=== PATIENT | male | born 1965 | race Caucasian/White ===

== ENCOUNTER 2019-05-06 00:33 | Day surgery (SDC) | payer OTHER, SELFPAY ==
[2019-05-01 14:11] VITALS: BMI 31.1
[2019-05-06] MEDS: LACTATED RINGERS 1,000 ML 150 ML IV CONT (06:50)
[2019-05-06 06:53] VITALS: BP 126/83; PULSE 66; RESP 18; TEMP 36.5; O2SAT 97; BMI 31.4
[2019-05-06 06:54] LABS: Glucose Point of Care 156 (65-105)
--- NOTE | 2019-05-06 07:07 | PM.HPGS ---
History of Present Illness History of Present Illness Consent: Risks, benefits, and alternatives have been discussed and questions answered. Patient agrees to proceed with procedure. Chief complaint: neoplasm screening Narrative: Salvador Lucas is a 54 year old W male Referred for screening colonoscopy secondary history of colonic polyps. Patient had several polyps removed 3 years ago mixture of adenomatous and hyperplastic polyps. Patient is asymptomatic. No family history of colon polyps or colon cancer. [facility] Past Medical History Medical History (Updated 05/06/19 @ 07:09 by Jarrod Jose MD) Diabetes mellitus Dyslipidemia Hypertension Sleep apnea Surgical History Surgical History (Updated 05/06/19 @ 07:10 by Jarrod Jose MD) Status post cholecystectomy Status post vasectomy Family History Family History Other Family history of gastrointestinal disorder Hypertension Meds Home Medications and Allergies Home Medications Medication Instructions Recorded Confirmed Type aspirin 81 mg PO DAILY 05/01/19 05/06/19 History atorvastatin 20 mg PO DAILY 05/01/19 05/06/19 History glipizide 5 mg PO DAILY 05/01/19 05/06/19 History lisinopril 20 mg PO DAILY 05/01/19 05/06/19 History sitagliptin-metformin [Janumet] 1,000 tablet PO BID 05/01/19 05/06/19 History Allergies Allergy/AdvReac Type Severity Reaction Status Date / Time amoxicillin Allergy Intermediate HIVES Verified 05/06/19 06:55 Vital Signs Vital Signs - 24 hr 05/06/19 06:53 Temperature 36.5 C Pulse Rate 66 Respiratory Rate 18 Blood Pressure 126/83 Pulse Oximetry 97 Exam Const: Orientation/consciousness: patient oriented x3 Resp: Auscultation: clear to auscultation bilaterally Cardio: Rate: regular rate Rhythm: regular rhythm Heart sounds: no murmurs GI: GI Palp: Yes Soft to palpation, No Tenderness to palpation present (GI), Yes No hepatosplenomegaly present and No Palpable mass present Auscultation: normal bowel sounds Neuro: General: patient oriented x3 and no focal motor deficits Extrem: General: no pedal edema Assessment and Plan Additional Plan screening colonoscopy secondary history of colonic polyps
--- NOTE | 2019-05-06 07:13 | WPDANESEPPF ---
Anes - Initial Pre Proc Eval Procedure: Operation Date: 05/06/19 07:30 Proposed Procedures p Screening Colonoscopy - Jarrod Jose MD Date/Time: 05/06/19 07:13 Surgeon: Jarrod Jose MD Pre Op Diagnosis: neoplasm screening Patient Data Age: 54 Gender: M Height: 6 ft 2 in Weight: 111.2 kg Last Vital Signs Temp 97.7 F 05/06/19 06:53 Pulse 66 05/06/19 06:53 Resp 18 05/06/19 06:53 BP 126/83 05/06/19 06:53 Pulse Ox 97 05/06/19 06:53 Allergies Allergy/AdvReac Type Severity Reaction Status Date / Time amoxicillin Allergy Intermediate HIVES Verified 05/06/19 06:55 Home Medications Medication Instructions Recorded Confirmed Type aspirin 81 mg PO DAILY 05/01/19 05/06/19 History atorvastatin 20 mg PO DAILY 05/01/19 05/06/19 History glipizide 5 mg PO DAILY 05/01/19 05/06/19 History lisinopril 20 mg PO DAILY 05/01/19 05/06/19 History sitagliptin-metformin [Janumet] 1,000 tablet PO BID 05/01/19 05/06/19 History Laboratory Tests 05/06/19 06:49 POC Capillary Glucose 156 mg/dl H mg/dl (65-105) Patient hx anesthesia problems: none Family hx anesthesia problems: none PMFSH Past Medical History Medical History (Updated 05/06/19 @ 07:09 by Jarrod Jose MD) Diabetes mellitus Dyslipidemia Hypertension Sleep apnea Surgical History Surgical History (Updated 05/06/19 @ 07:10 by Jarrod Jose MD) Status post cholecystectomy Status post vasectomy Family History Family History Other Family history of gastrointestinal disorder Hypertension Anes - Eval Final PreProcedure Day of Procedure 05/06/19 07:13 Patient weight: obese Heart: regular rate and rhythm Lungs: clear to auscultation Airway: Mallampati scale class III Neurological: alert and oriented Last oral intake: >/= 8 hours ASA classification: III Emergent: no Anesthetic plan: proceed Anesthesia type and monitoring: general GIVS and standard monitoring Informed Consent: The patient's anesthetic plan and its attendant risks and benefits were discussed with the patient/family/POA. Questions were solicited and answers provided to the satisfaction of the patient/family/POA.
[2019-05-06 07:55] VITALS: BP 103/62; PULSE 82; RESP 19; O2SAT 99
[2019-05-06 08:05] VITALS: BP 112/74; PULSE 65; RESP 18; O2SAT 99
[2019-05-06 08:15] VITALS: BP 115/83; PULSE 63; RESP 20; O2SAT 98
== END 2019-05-06 08:28 | disposition home or self-care (01) ==
PROVIDERS: Visit Provider Internal Medicine Gastroenterology
PROC: 0DJD8ZZ Inspection of Lower Intestinal Tract, Via Natural or Artificial Opening Endoscopic (ICD-10-PCS; CPT 45378; principal; 2019-05-06 07:30)
DX: Z12.11 Encounter for screening for malignant neoplasm of colon (principal); K64.4 Residual hemorrhoidal skin tags; Z86.010 Personal history of colon polyps; I10 Essential (primary) hypertension; E11.9 Type 2 diabetes mellitus without complications; E78.5 Hyperlipidemia, unspecified; G47.30 Sleep apnea, unspecified; Z79.82 Long term (current) use of aspirin; Z79.84 Long term (current) use of oral hypoglycemic drugs; E66.9 Obesity, unspecified; Z68.31 Body mass index [BMI] 31.0-31.9, adult
CPT/HCPCS: 45378; J2704; J7120

== ENCOUNTER 2020-01-12 17:37 | Emergency (ER) | payer OTHER, SELFPAY ==
--- NOTE | ~2020-01-12 | CT_ITS ---
EXAMINATION: CTA chest PE protocol EXAM DATE: 01/12/2020 22:39 INDICATION: Chest pain, shortness of breath, elevated d dimer. TECHNIQUE: Spiral CTA of the chest (pulmonary arteries) was performed with 100 cc Omnipaque 350 intr avenous contrast injection. Images were acquired during the pulmonary arterial phase. Coronal maxi mum intensity projection 3D-reconstructions were created by the technologist on dedicated workstation . Axial, coronal and sagittal reformatted images were reviewed. The dose-length product (DLP) for t his examination was 716.46 mGy-cm. The exposure was tailored according to patient size (auto mA exp osure control), and iterative reconstruction (ASIR) was used as additional dose reduction technique. There is no prior study for comparison. FINDINGS: Pulmonary arteries are well opacified and without intraluminal filling defects. No thora cic aortic dissection. Right lower lobe subsegmental atelectasis. The lungs are otherwise clear. T race pericardial effusion Tracheobronchial tree is patent. There is no mediastinal, hilar or axill tiffanie lymphadenopathy. There is no pneumothorax. Heart normal in size. There is minimal coronary arterial calcification, arterial sclerosis. There are cholecystectomy clips. There is thoracic spon dylosis without osteoblastic or osteolytic lesions identified. IMPRESSION: 1. No pulmonary emboli or acute findings. Reviewed, dictated and finalized at location A. ROOM SUPERVISOR
--- NOTE | ~2020-01-12 | XR_ITS ---
EXAMINATION: XR chest 2V EXAM DATE: 01/12/2020 20:41 INDICATION: Generalized chest pain worsening. Headaches. TECHNIQUE: Frontal and lateral projections of the chest obtained and reviewed. There is no prior kassandra dy for comparison. FINDINGS: Rounded density projecting over mid thoracic spinal lateral projection is chronic, correla ting with a prior abdomen CT from 2006. Linear left basilar atelectasis. The lungs are otherwise scotty r. There are no pleural effusions. The cardiomediastinal silhouette is within normal limits. There is no pneumothorax suspected. The bones and soft tissues are unremarkable. There are cholecystecto my clips. IMPRESSION: Subsegmental left basilar atelectasis. Reviewed, dictated and finalized at location A. SOFTWARE TESTER
--- NOTE | 2020-01-12 18:03 | ECG_ITS ---
Measurements Intervals [place] Rate: 81 P: 19 NV: 164 QRS: 23 QRSD: 102 T: 29 QT: 350 QTc: 408 Interpretive Statements SINUS RHYTHM BASELINE WANDER- II, III, AVL, AVF, V4-V6 NORMAL ECG Electronically Signed On 01-13-2020 14:49:01 PINMAKER by Fausto Luna D.O.
[2020-01-12 18:04] VITALS: BP 124/89; PULSE 78; RESP 18; TEMP 36.8; O2SAT 100
[2020-01-12 18:18] LABS: Basophils Absolute Auto 0.1 K/mm3 (0.0-0.1); Basophils Percent Auto 0.9 % (0.2-1.2); Eosinophils Absolute Auto 0.4 K/mm3 (0-0.3); Eosinophils Percent Auto 4.1 % (0-4.4); Hemoglobin 12.5 g/dL (14.0-18.0); Immature Granulocyte Absolute 0.05 K/mm3 (0.00-0.031); Immature Granulocyte Percent A 0.5 % (0-0.5); Lymphocytes Absolute Auto 3.26 K/mm3 (0.9-3.2); Lymphocytes Percent Auto 31.3 % (18.3-44.2); Mean Corpuscular HGB Conc 32.1 g/dl (32-36); Mean Corpuscular Hemoglobin 27.5 pg (26-34); Mean Corpuscular Volume 85.9 fl (80-100); Mean Platelet Volume 11.1 fl (7.4-10.4); Monocytes Absolute Auto 0.7 K/mm3 (0.1-0.6); Monocytes Percent Auto 7.1 % (2.6-8.5); Neutrophils Absolute Auto 5.9 K/mm3 (1.3-6.7); Neutrophils Percent Auto 56.1 % (45.5-73.1); Platelet Count Result 338 k/mm3 (150-375); Red Blood Count 4.54 M/mm3 (4.6-6.20); Red Cell Distribution Width 13.2 % (11.5-14.5); White Blood Count 10.4 K/mm3 (4.5-10.0)
[2020-01-12 18:27] LABS: INR 0.9; Prothrombin Time 13.2 Seconds (11.1-14.7)
[2020-01-12 18:28] LABS: Partial Thromboplastin Time 24.9 SECONDS (22.3-36.8)
[2020-01-12 18:44] LABS: Anion Gap 13 mmol/L (8-16); Blood Urea Nitrogen 13 mg/dL (9-20); Calcium 9.7 mg/dL (8.4-10.2); Carbon Dioxide 23 mmol/L (22-30); Chloride 101 mmol/L (98-107); Estimated CRCL calculation 141 ml/min; Estimated Glomerular Filt Rate > 60; Glucose 197 mg/dL (75-110); Potassium 4.1 mmol/L (3.4-5.0); Sodium 137 mmol/L (137-145)
[2020-01-12 18:56] LABS: Troponin I < 0.012 ng/mL (0.000-0.034)
--- NOTE | 2020-01-12 20:33 | ED.CHESTPAIN ---
HPI - Chest Pain General Chief Complaint: Chest Pain Stated Complaint: chest pain Time Seen by Provider: 01/12/20 20:21 Source: patient Mode of arrival: ambulatory Limitations: no limitations History of Present Illness HPI narrative: This patient is a 54 year old male with history of hypertension and diabetes mellitus who presents for evaluation of midsternal chest pain. He developed pain 24 hours ago. He states his pain has been constant but it is gradually worsening. He feels this pain more when he turns his neck and takes a breath. He also reports some shortness of breath when walking up stairs. He denies fever, chills, nausea, vomiting , diarrhea, cough. His is under investigation for covid. He denies history of cardiac disease and PE. He has taken tylenol for his pain and he rates his pain 08/06. Related Data Home Medications Medication Instructions Recorded Confirmed Janumet 1,000 tablet PO BID 05/01/19 05/06/19 aspirin 81 mg PO DAILY 05/01/19 05/06/19 atorvastatin 20 mg PO DAILY 05/01/19 05/06/19 glipizide 5 mg PO DAILY 05/01/19 05/06/19 lisinopril 20 mg PO DAILY 05/01/19 05/06/19 Allergies Allergy/AdvReac Type Severity Reaction Status Date / Time amoxicillin Allergy Intermediate HIVES Verified 01/12/20 21:25 Review of Systems Review of Systems: All systems reviewed & are unremarkable except as noted in HPI and below Constitutional: Constitutional: Denies chills, Reports fatigue and Denies fever(s) Cardiovascular: Cardiovascular: Reports chest pain and Denies radiating jaw, neck or arm pain Respiratory: Respiratory: Denies cough, Reports dyspnea and Denies wheezing Gastrointestinal: Gastrointestinal: Denies abdominal pain, Denies nausea and Denies vomiting PMF Past Medical History Medical History (Updated 01/13/20 @ 00:00 by Background [place]) Diabetes mellitus Dyslipidemia Hypertension Sleep apnea Surgical History Surgical History (Updated 05/06/19 @ 07:10 by Jarrod Jose MD) Status post cholecystectomy Status post vasectomy Family History Family History Other Family history of gastrointestinal disorder Hypertension Exam Const: General: healthy appearing and alert Orientation/consciousness: patient oriented x3 HENMT: Head: normocephalic and atraumatic Face and sinus: face symmetric Eyes: EOM: EOMs intact bilaterally Chest: Chest palpation & inspection: normal inspection of the chest Resp: Effort & Inspection: normal respiratory effort and no retractions Auscultation: clear to auscultation bilaterally Cardio: Rate: regular rate Rhythm: regular rhythm Heart sounds: no murmurs GI: GI Palp: Yes Soft to palpation, No Tenderness to palpation present (GI), No Guarding due to palpation present (GI), No Rigid due to palpation, No Hernia present and No Rebound tenderness present Auscultation: normal bowel sounds Skin: General skin exam: normal color Rashes: no rashes Neuro: General: patient oriented x3 and moves all extremities Extrem: General: normal to inspection and no pedal edema Course Reevaluation(s) Reevaluation #1: I discussed with patient that evaluation has been unremarkable. His pain may be muscular skeletal . It is not exertional. Date: 01/12/20 Time: 22:58 Vital Signs Vital signs: Vital Signs Temperature 98.3 F 01/12/20 18:04 Pulse Rate 78 01/12/20 18:04 Respiratory Rate 18 01/12/20 18:04 Blood Pressure 124/89 01/12/20 18:04 Pulse Oximetry 100 01/12/20 18:04 Temperature 98.3 F 01/12/20 18:04 Pulse Rate 55 L 01/12/20 23:30 Respiratory Rate 16 01/12/20 23:30 Blood Pressure 140/90 01/12/20 23:30 Pulse Oximetry 97 01/12/20 23:30 MDM - Chest Pain Lab Data Attestation: I reviewed the patient's lab results. Result diagrams: 01/12/20 18:12 01/12/20 18:12 Labs: Lab Results 01/12/20 01/12/20 01/12/20
[2020-01-12 21:00] LABS: D Dimer 0.62 ug/mL (<0.48)
[2020-01-12 21:11] LABS: Add Urine Microscopic? YES; Appearance Urine Clear (Clear); Bilirubin Urine Negative (Negative); Blood Urine Negative (Negative); Color Urine Yellow (Yellow); Glucose Urine UA 3+ mg/dL (Negative); Ketones Urine Trace mg/dL (Negative); Leukocyte Esterase Ur Negative LEU/UL (Negative); Mucus Urine Few /lpf; Nitrate Urine Negative (Negative); Protein Urine 1+ mg/dL (Negative); RBC Urine 0-2 /hpf (0-2); Squamous Epithelial Cell Urine Rare /hpf (Few); Urobilinogen Urine Negative mg/dL (<2.0); WBC Urine 0-3 /hpf
[2020-01-12 21:14] LABS: Specific Grav Ur 1.033 (1.001-1.035)
[2020-01-12 21:17] VITALS: PULSE 61; RESP 12; O2SAT 99
[2020-01-12 21:17] LABS: CRP 1.2 mg/dL (<1.0)
[2020-01-12 21:30] VITALS: PULSE 60; O2SAT 97
[2020-01-12 21:45] VITALS: PULSE 62; RESP 16; O2SAT 96
[2020-01-12 22:00] VITALS: PULSE 58; RESP 15; O2SAT 95
[2020-01-12] MEDS: KETOROLAC 15 MG/ML VIAL (*BKC) IV PUSH (22:07)
--- NOTE | 2020-01-12 22:11 | PC.NURSE ---
Attempted to contact CT, no answer.
[2020-01-12 22:12] LABS: Troponin I < 0.012 ng/mL (0.000-0.034)
[2020-01-12 23:30] VITALS: BP 140/90; PULSE 55; RESP 16; O2SAT 97
== END 2020-01-12 23:30 | disposition home or self-care (01) ==
PROVIDERS: Emergency Medicine; Emergency Provider General Practice
DX: R07.89 Other chest pain (principal); E11.9 Type 2 diabetes mellitus without complications; I10 Essential (primary) hypertension; E78.5 Hyperlipidemia, unspecified; G47.30 Sleep apnea, unspecified; Z79.82 Long term (current) use of aspirin; Z79.84 Long term (current) use of oral hypoglycemic drugs
CPT/HCPCS: 36415; 71046; 71275; 80048; 81001; 84484; 85025; 85380; 85610; 85730; 86140; 93005; 96374; 99284; J1885; Q9967

== ENCOUNTER 2020-07-28 10:16 | Emergency (ER) | payer OTHER, SELFPAY ==
--- NOTE | 2020-07-28 10:25 | ED.SKABFB ---
HPI - Skin/Abscess/Foreign Bdy General Chief complaint: Skin/Abscess/Foreign Body Stated complaint: insect bites Time Seen by Provider: 07/28/20 10:25 Source: patient and RN notes reviewed Mode of arrival: ambulatory Limitations: no limitations History of Present Illness HPI narrative: 55-year-old male presents to the [facility] with complaints of Bug bites to his arms and legs since Monday. States that he was at the beach in [place] last week and Monday/ Monday started with red raised areas to his arms and legs. Describes them as being very itchy, not painful. Has been having trouble sleeping. Has tried multiple [id number]-[id number] products with no relief. See only person in the household with the issue. Has a history of high cholesterol, diabetes and hypertension Denies fevers, chest pain, joint pain, abdominal pain. No nausea vomiting or diarrhea. Related Data Home Medications Medication Instructions Recorded Confirmed Janumet 1,000 tablet PO BID 05/01/19 07/28/20 aspirin 81 mg PO DAILY 05/01/19 07/28/20 atorvastatin 20 mg PO DAILY 05/01/19 07/28/20 glipizide 5 mg PO DAILY 05/01/19 07/28/20 lisinopril 20 mg PO DAILY 05/01/19 07/28/20 Allergies Allergy/AdvReac Type Severity Reaction Status Date / Time amoxicillin Allergy Intermediate HIVES Verified 01/12/20 21:25 Review of Systems Review of Systems: All systems reviewed & are unremarkable except as noted in HPI and below Constitutional: Constitutional: Reports no additional constitutional complaints, Denies chills, Denies fatigue, Denies fever(s) and Denies weakness Eyes: Eyes: Reports no additional eye complaints ENT: Reports system reviewed and no additional complaints, except as documented Cardiovascular: Cardiovascular: Reports no additional cardiovascular complaints and Denies chest pain Respiratory: Respiratory: Reports no additional respiratory complaints, Denies cough and Denies dyspnea Gastrointestinal: Gastrointestinal: Reports no additional gastrointestinal complaints Musculoskeletal: Musculoskeletal: Reports no additional musculoskeletal complaints, Denies back pain, Denies arthralgias, Denies joint swelling and Denies muscle cramps Integumentary/Breasts: Skin/Breast: Reports as per HPI and Reports rash Neurologic: Reports system reviewed and no additional complaints, except as documented Psychiatric: Psychiatric: Reports no additional psychiatric complaints [facility] Past Medical History Medical History (Updated 07/28/20 @ 10:36 by Izzy Rider) Diabetes mellitus Dyslipidemia Hypertension Sleep apnea Surgical History Surgical History Status post cholecystectomy Status post vasectomy Family History Family History Other Family history of gastrointestinal disorder Hypertension Social History Social History Gender identity (if verbalized by the patient): Male Comments At the time of my signature, I reviewed and agree with the nursing past medical, surgical, social, and family history. There is no relevant family history pertinent to the patient complaint. Exam Const: General: healthy appearing, no acute distress and alert Nutritional Appearance: well nourished Orientation/consciousness: patient oriented x3 Limitations: no limitations HENMT: Head: normal to inspection Eyes: Pupils: Equal, round and reactive pupils present Neck: Neck: normal visual inspection, no lymphadenopathy and no meningeal signs Chest: Chest palpation & inspection: normal inspection of the chest Resp: Effort & Inspection: normal respiratory effort and no use of accessory muscles Auscultation: clear to auscultation bilaterally, crackles, no rales, no rhonchi and no wheezes Cardio: Rate: regular rate Rhythm: regular rhythm Back/Spine/Pelvis: Back: no CVA tenderness Skin: General skin exam: norm
[2020-07-28 10:30] VITALS: BP 121/92; PULSE 79; RESP 20; TEMP 36.4; O2SAT 99
== END 2020-07-28 10:51 | disposition home or self-care (01) ==
PROVIDERS: Emergency Provider Nurse Practitioner
DX: S40.862A Insect bite (nonvenomous) of left upper arm, initial encounter (principal); S40.861A Insect bite (nonvenomous) of right upper arm, initial encounter; S50.862A Insect bite (nonvenomous) of left forearm, initial encounter; S50.861A Insect bite (nonvenomous) of right forearm, initial encounter; S80.862A Insect bite (nonvenomous), left lower leg, initial encounter; S80.861A Insect bite (nonvenomous), right lower leg, initial encounter; S70.361A Insect bite (nonvenomous), right thigh, initial encounter; S70.362A Insect bite (nonvenomous), left thigh, initial encounter; E11.9 Type 2 diabetes mellitus without complications; I10 Essential (primary) hypertension; E78.5 Hyperlipidemia, unspecified; G47.30 Sleep apnea, unspecified; Z79.84 Long term (current) use of oral hypoglycemic drugs; Z79.82 Long term (current) use of aspirin; W57.XXXA Bitten or stung by nonvenomous insect and other nonvenomous arthropods, initial encounter
CPT/HCPCS: 99213; G0463

== ENCOUNTER 2022-02-17 10:03 | Emergency (ER) | payer OTHER, SELFPAY ==
[2022-02-17 10:14] VITALS: BP 115/84; PULSE 100; RESP 18; TEMP 37.1; O2SAT 100
--- NOTE | 2022-02-17 10:40 | ED.URI ---
HPI - URI/Sore Throat General Chief Complaint: Upper Respiratory Infection Stated Complaint: Cough,Sore Throat,Congestion Source: patient Mode of arrival: ambulatory History of Present Illness HPI Narrative: This is a 57-year-old male presented to our urgent care with complaints of a cough with yellowish-greenish sputum in a runny nose sore throat with shortness of breath that he has had 4 proximally 1 and half weeks. Patient notes that he took gmvh-zhr-mmixsyk NyQuil and DayQuil for symptoms. Patient also notes that he had shortness of breath with activity. The patient denies , CP, palpitation, extremity numbness, lightheadedness, dizziness, constipation, diarrhea, chills, or fever. Related Data Home Medications Medication Instructions Recorded Confirmed aspirin 81 mg tablet,delayed 81 mg PO DAILY 05/01/19 02/17/22 release atorvastatin 20 mg tablet 20 mg PO DAILY 05/01/19 02/17/22 glipizide 5 mg tablet, extended 5 mg PO DAILY 05/01/19 02/17/22 release 24 hr lisinopril 20 mg tablet 20 mg PO DAILY 05/01/19 02/17/22 sitagliptin phosphate 50 1,000 tablet PO BID 05/01/19 02/17/22 mg-metformin 1,000 mg tablet (Janumet) Allergies Allergy/AdvReac Type Severity Reaction Status Date / Time amoxicillin AdvReac Mild HIVES Verified 02/17/22 10:09 Review of Systems Review of Systems: A 14 organ system Review of Systems was performed and pertinent positives included in the HPI, otherwise remaining ROS is negative. [facility] Past Medical History Medical History (Updated 02/17/22 @ 10:40 by BRIANNA Lemus) Diabetes mellitus Dyslipidemia Hypertension Sleep apnea Surgical History Surgical History Status post cholecystectomy Status post vasectomy Family History Family History Other Family history of gastrointestinal disorder Hypertension Social History Social History Gender identity (if verbalized by the patient): Male Exam Narrative: GENERAL: This is a well-nourished, well-developed patient, in no apparent distress. HEAD: normocephalic, atraumatic. EYES: PERRL. Sclera clear/white. Vision is grossly intact. EARS: External ears normal, auditory canals clear and without drainage, TMs normal without perforation. Hearing grossly intact. NOSE: External nose normal with no obvious nasal discharge, nares without redness, no rhinorrhea. THROAT: Mucous membranes moist, posterior pharynx clear. NECK: Neck supple, non-tender without lymphadenopathy, masses or thyromegaly. CARDIOVASCULAR: Regular rate and rhythm without murmurs, gallops, or rubs. RESPIRATORY: Clear to auscultation. Breath sounds equal bilaterally. No wheezes, rales, or rhonchi. GASTROINTESTINAL: Abdomen soft, non-tender, nondistended. Bowel sounds are active. No hepato-splenomegaly, or palpable masses. No guarding. SKIN: warm, intact with no suspicious lesions or rash, good texture and turgor. NEURO: awake, alert, and oriented to person, place and time. There were no obvious focal neurologic abnormalities. EXTREMITIES: Normal range of motion. No edema. No calf tenderness. Course Course Emergency Course: Patient was discharged with azithromycin, Tessalon Perles, guaifenesin, albuterol inhaler. Instructed to use rrch-xtd-lfcuway medications to relieve the symptoms Level of Care: Express Care Visit Vital Signs Vital signs: Vital Signs Temperature 98.7 F 02/17/22 10:14 Pulse Rate 100 02/17/22 10:14 Respiratory Rate 18 02/17/22 10:14 Blood Pressure 115/84 02/17/22 10:14 Pulse Oximetry 100 02/17/22 10:14 Oxygen Delivery Room Air 02/17/22 10:14 Temperature 98.7 F 02/17/22 10:14 Pulse Rate 100 02/17/22 10:14 Respiratory Rate 18 02/17/22 10:14 Blood Pressure 115/84 02/17/22 10:14 Pulse Oximetry 100 02/17/22 10:14 Oxygen Delivery Room Air
== END 2022-02-17 10:42 | disposition home or self-care (01) ==
PROVIDERS: Emergency Provider Nurse Practitioner
DX: J40 Bronchitis, not specified as acute or chronic (principal); E11.9 Type 2 diabetes mellitus without complications; E78.5 Hyperlipidemia, unspecified; I10 Essential (primary) hypertension; Z20.822 Contact with and (suspected) exposure to COVID-19; Z79.82 Long term (current) use of aspirin
CPT/HCPCS: 87426; 99213; C9803; G0463

== ENCOUNTER 2022-09-18 17:30 | Emergency (ER) | payer OTHER, SELFPAY ==
--- NOTE | ~2022-09-18 | XR_ITS ---
XR ribs BI 3V w CXR 2V DATE: 09/18/2022 18:05 INDICATION: Fall. Rib pain. TECHNIQUE: PA and lateral chest. 3 views of right ribs. 3 views of left ribs. COMPARISON: 01/11/2022 view chest FINDINGS: Normal heart size. No hilar or mediastinal enlargement. No pulmonary infiltrate or consolid ation, pleural effusion or pulmonary vascular congestion or pneumothorax. Azygos lobe, normal variant . Chronic mild discoid scarring in the lateral left lung base. No evidence of left or right rib fracture or bone destruction. Status post cholecystectomy. Degenerative spurring of the thoracic spine. IMPRESSION: No left or right rib fracture or bone destruction is detected No active cardiopulmonary disease Degenerative spurring of the thoracic spine Status post cholecystectomy Reviewed, dictated and finalized at location A.
[2022-09-18 17:35] VITALS: BP 98/64; PULSE 86; RESP 18; TEMP 36.6; O2SAT 96
--- NOTE | 2022-09-18 18:54 | ED.GENADULT ---
HPI - General Adult General Chief complaint: Unspecified Stated complaint: GLF today, left rib pain Time Seen by Provider: 09/18/22 18:22 Source: patient Mode of arrival: ambulatory Limitations: no limitations History of Present Illness HPI narrative: Patient is a 57-year-old male who presents to the ED with report of left-sided rib pain. Patient reports he was playing golf around 2 PM today when he tripped over the golf cart and fell onto his left side. States he was unable to brace himself and landed directly on his left side with his left arm tucked underneath his chest. He did not hit his head or lose consciousness. He complains of pain to his left lateral rib cage. Pain worse with movement, coughing, laughing, taking deep breaths. He denies shortness of breath. Denies anterior chest pain. Denies abdominal pain. Denies vomiting. Patient is not on any blood thinners. Patient did take advil 400mg after the initial fall without much improvement. Related Data Home Medications Medication Instructions Recorded Confirmed aspirin 81 mg tablet,delayed 81 mg PO DAILY 05/01/19 02/17/22 release atorvastatin 20 mg tablet 20 mg PO DAILY 05/01/19 02/17/22 glipizide 5 mg tablet, extended 5 mg PO DAILY 05/01/19 02/17/22 release 24 hr lisinopril 20 mg tablet 20 mg PO DAILY 05/01/19 02/17/22 sitagliptin phosphate 50 1,000 tablet PO BID 05/01/19 02/17/22 mg-metformin 1,000 mg tablet (Janumechristoph) Allergies Allergy/AdvReac Type Severity Reaction Status Date / Time amoxicillin AdvReac Mild HIVES Verified 09/18/22 17:31 Review of Systems Review of Systems: CONSTITUTIONAL: Denies fever, chills, or sweats. CARDIOVASCULAR: Denies chest pain. RESPIRATORY: See HPI. GASTROINTESTINAL: Denies abdominal pain, nausea, vomiting. MUSCULOSKELETAL: See HPI. NEUROLOGIC: Denies HI, LOC, headache, numbness, or weakness. All systems reviewed & are unremarkable except as noted in HPI and below PMFSH Past Medical History Medical History Diabetes mellitus Dyslipidemia Hypertension Sleep apnea Surgical History Surgical History Status post cholecystectomy Status post vasectomy Family History Family History Other Family history of gastrointestinal disorder Hypertension Social History Social History Gender identity (if verbalized by the patient): Male Exam Narrative: GENERAL: Well appearing, well-nourished, non-toxic, in mild acute distress d/t pain. HEAD: Normocephalic, atraumatic. NECK: Supple. No adenopathy, no masses. RESPIRATORY: Airway patent, respirations nonlabored. Clear to auscultation bilaterally, no rales, rhonchi, wheezing. No splinting. No focal lung sounds. No decreased lung sounds. CARDIOVASCULAR: Regular rate and rhythm without murmurs, rubs, or gallops. Peripheral pulses 2+ and equal bilaterally. ABDOMINAL: Soft, no tenderness throughout left lateral lower left upper abdomen, nondistended, no hepatosplenomegaly. Normoactive BS. MUSCULOSKELETAL: Moves all extremities. Strength/ROM intact without gross deformities. Focal point TTP over L mid to lower anterior lateral chest wall/rib cage, reproducing pain. No anterior chest pain. SKIN: Warm, dry, normal color. No rashes. NEURO: A&O X3. Speech clear. Cranial nerves II-XII grossly intact. Steady gait. No ataxic movements. PSYCHIATRIC: Appropriate mood and affect. Normal interaction. Course Vital Signs Vital signs: Vital Signs Temperature 98 F 09/18/22 17:35 Pulse Rate 86 09/18/22 17:35 Respiratory Rate 18 09/18/22 17:35 Blood Pressure 98/64 L 09/18/22 17:35 Pulse Oximetry 96 09/18/22 17:35 Temperature 98.6 F 09/18/22 19:23 Pulse Rate 82 09/18/22 19:23 Respiratory Rate 16 09/18/22 19:23
[2022-09-18] MEDS: KETOROLAC 30 MG/ML VIAL (*BKC) IM (19:02)
[2022-09-18] MEDS: CYCLOBENZAPRINE HCL 5 MG TABLET PO (19:03)
[2022-09-18 19:23] VITALS: BP 96/67; PULSE 82; RESP 16; TEMP 37; O2SAT 98
[2022-09-18 19:24] VITALS: BP 107/68
== END 2022-09-18 19:24 | disposition home or self-care (01) ==
PROVIDERS: Emergency Provider Physician Assistant
DX: S20.212A Contusion of left front wall of thorax, initial encounter (principal); I10 Essential (primary) hypertension; E11.9 Type 2 diabetes mellitus without complications; E78.5 Hyperlipidemia, unspecified; G47.30 Sleep apnea, unspecified; Z90.49 Acquired absence of other specified parts of digestive tract; Z79.82 Long term (current) use of aspirin; Z79.84 Long term (current) use of oral hypoglycemic drugs; W18.09XA Striking against other object with subsequent fall, initial encounter
CPT/HCPCS: 71046; 71110; 96372; 99283; A9270; J1885

== ENCOUNTER 2022-10-21 12:35 | Emergency (ER) | payer OTHER, SELFPAY ==
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
[2022-10-21 12:55] VITALS: BP 111/73; PULSE 71; RESP 16; TEMP 36.4; O2SAT 96
== END 2022-10-21 13:20 | disposition home or self-care (01) ==
PROVIDERS: Emergency Provider Nurse Practitioner
DX: S20.219A Contusion of unspecified front wall of thorax, initial encounter (principal); V49.9XXA Car occupant (driver) (passenger) injured in unspecified traffic accident, initial encounter; Z79.82 Long term (current) use of aspirin; E11.9 Type 2 diabetes mellitus without complications; E78.5 Hyperlipidemia, unspecified; I10 Essential (primary) hypertension
CPT/HCPCS: 99212; G0463

== ENCOUNTER 2023-04-27 10:01 | Emergency (ER) | payer OTHER, SELFPAY ==
--- NOTE | ~2023-04-27 | XR_ITS ---
EXAMINATION: XR pelvis 1-2V DATE: 04/27/2023 11:25 INDICATION: Left hip pain. TECHNIQUE: An anteroposterior view of the pelvis was obtained. COMPARISON: None. FINDINGS: Bone alignment is normal. No fracture. There is mild osteoarthritis of the hips. IMPRESSION: 1. Mild osteoarthritis of the hips. Reviewed, dictated and finalized at location A. OR PROCUREMENT SPECIALIST
--- NOTE | ~2023-04-27 | XR_ITS ---
. EXAMINATION: XR lumbar spine 2-3V DATE: 04/27/2023 11:25 INDICATION: Low back pain. Left hip pain. TECHNIQUE: 3 views of lumbar spine were obtained. COMPARISON: None. FINDINGS: Bone alignment is normal. Vertebral body heights are normal. There are endplate osteophytes at multiple levels. There is multilevel facet joint osteoarthritis, severe in lower lumbar spine. IMPRESSION: 1. Mild lumbar spondylosis. Reviewed, dictated and finalized at location A. [employer] SERVICE SALES CONSULTANT IMPRESSION: 1. Mild lumbar spondylosis.
[2023-04-27 10:09] VITALS: BP 137/91; PULSE 74; RESP 16; TEMP 36.3; O2SAT 100
[2023-04-27] MEDS: ACETAMINOPHEN 500 MG TABLET 1000 MG PO (11:28)
[2023-04-27] MEDS: LIDOCAINE 5% PATCH 1 PATCH TRANSDERM (11:28)
[2023-04-27 12:00] VITALS: BP 119/63; PULSE 58; RESP 19; O2SAT 98
--- NOTE | 2023-04-27 12:00 | ED.BACK ---
HPI - Back Pain/Injury General Chief Complaint: Back Pain/Injury Stated Complaint: LOWER BACK PAIN XMONTH Time Seen by Provider: 04/27/23 10:52 History of Present Illness HPI Narrative: This is a 58-year-old male, with recent history of right meniscal tear 3 weeks ago, who presents to the emergency department complaining low back pain for the past 3 weeks. He describes pain as dull with intermittent soreness and sharp pain, rated 7/10 without radiation or associated bowel / bladder incontinence, loss of sensation groin or loss strength/sensation in the legs. he denies recent trauma, fevers, chills has no other complaints at this time. Related Data Home Medications Medication Instructions Recorded Confirmed aspirin 81 mg tablet,delayed 81 mg PO DAILY 05/01/19 10/21/22 release atorvastatin 20 mg tablet 20 mg PO DAILY 05/01/19 10/21/22 glipizide 5 mg tablet, extended 5 mg PO DAILY 05/01/19 10/21/22 release 24 hr lisinopril 20 mg tablet 20 mg PO DAILY 05/01/19 10/21/22 sitagliptin phosphate 50 1,000 tablet PO BID 05/01/19 10/21/22 mg-metformin 1,000 mg tablet (Janumet) Allergies Allergy/AdvReac Type Severity Reaction Status Date / Time amoxicillin AdvReac Mild HIVES Verified 04/27/23 10:02 Review of Systems Review of Systems: CONSTITUTIONAL: Denies fever, chills, or sweats. CARDIOVASCULAR: Denies chest pain, palpitations, or edema. RESPIRATORY: Denies cough or dyspnea. GASTROINTESTINAL: Denies abdominal pain, nausea, vomiting, or diarrhea. GENITOURINARY: Denies dysuria or hematuria. SKIN: Denies rash or itching. MUSCULOSKELETAL: Low back pain Denies joint pain, or myalgia. NEUROLOGIC: Denies headache, numbness, dizziness, or weakness. PSYCHIATRIC: Denies anxiety or depression. [facility] Past Medical History Medical History Diabetes mellitus Dyslipidemia Hypertension Sleep apnea Surgical History Surgical History Status post cholecystectomy Status post vasectomy Family History Family History Other Family history of gastrointestinal disorder Hypertension Social History Social History Smoking status: Never smoker Alcohol intake: current Substance use: never Gender identity (if verbalized by the patient): Male Exam Narrative: GENERAL: Well-developed, well-nourished, and in no acute distress. HEAD: Normocephalic, atraumatic. EYES: PERRLA and EOMI. CHEST: Clear to auscultation. No respiratory distress. No wheezes rales or rhonchi HEART: Regular rate and rhythm. No murmur heard. Normal peripheral pulses. ABDOMEN: Soft, nontender, nondistended, normal active bowel sounds. BACK: No midline spine tenderness to palpation, step-off or crepitus. Tender to palpation at the left sacroiliac joint without overlying erythema, induration or crepitus. EXTREMITIES: Normal range of motion. No edema. SKIN: Warm, dry, no rash. NEURO: Alert and oriented x3. No focal deficit. Moving all 4 limbs spontaneously PSYCH: Normal mood and affect. Course Course Emergency Course: 12:02 - X-rays demonstrate changes consistent with some lumbar spondylosis and osteoarthritis of the hips. Will discharge with NSAIDs, lidocaine patches and recommendation for primary care follow-up. I discussed the findings and recommendations with the patient. Discussed return and emergency precautions including signs/symptoms of cauda equina an epidural abscess. The patient voiced understanding and agreement with the plan. All questions answered to his satisfaction. Vital Signs Vital signs: Vital Signs Temperature 97.4 F L 04/27/23 10:09 Pulse Rate 74 04/27/23 10:09 Respiratory Rate 16 04/27/23 10:09 Blood Pressure 137/91 H 04/27/23 10:09 Pulse Oximetry 100 04/27/23 10:09 Oxygen Deliver
== END 2023-04-27 12:18 | disposition home or self-care (01) ==
PROVIDERS: Emergency Provider Preventive Medicine Aerospace Medicine
DX: M47.816 Spondylosis without myelopathy or radiculopathy, lumbar region (principal); E11.9 Type 2 diabetes mellitus without complications; E78.5 Hyperlipidemia, unspecified; I10 Essential (primary) hypertension; G47.30 Sleep apnea, unspecified; Z90.49 Acquired absence of other specified parts of digestive tract; Z79.84 Long term (current) use of oral hypoglycemic drugs; Z79.82 Long term (current) use of aspirin; M16.0 Bilateral primary osteoarthritis of hip
CPT/HCPCS: 72100; 72170; 99284; A9270

== ENCOUNTER 2023-05-29 09:38 | Emergency (ER) | payer OTHER, SELFPAY ==
[2023-05-29 09:48] VITALS: BP 143/86; PULSE 72; RESP 20; TEMP 36.7; O2SAT 97
--- NOTE | 2023-05-29 10:04 | ED.GENADULT ---
HPI - General Adult General Chief complaint: Upper Respiratory Infection Stated complaint: Cough and Chest Discomfort Time Seen by Provider: 05/29/23 10:00 Source: patient, RN notes reviewed and old records reviewed Mode of arrival: ambulatory Limitations: no limitations History of Present Illness HPI narrative: 58-year-old male to [facility] with complaint of sore throat for 1 week, nonproductive cough 3 days. Patient has treated at home with DayQuil and NyQuil without much relief. Patient denies fever, headache, gi complaints. patient able to tolerate fluids by mouth. Related Data Home Medications Medication Instructions Recorded Confirmed aspirin 81 mg tablet,delayed 81 mg PO DAILY 05/01/19 05/29/23 release atorvastatin 20 mg tablet 20 mg PO DAILY 05/01/19 05/29/23 glipizide 5 mg tablet, extended 5 mg PO DAILY 05/01/19 05/29/23 release 24 hr lisinopril 20 mg tablet 20 mg PO DAILY 05/01/19 05/29/23 sitagliptin phosphate 50 1,000 tablet PO BID 05/01/19 05/29/23 mg-metformin 1,000 mg tablet (Janumet) Allergies Allergy/AdvReac Type Severity Reaction Status Date / Time amoxicillin AdvReac Mild HIVES Verified 05/29/23 10:02 Review of Systems Review of Systems: All systems reviewed & are unremarkable except as noted in HPI and below Constitutional: Constitutional: Reports as per HPI, Denies body ache(s), Denies chills, Denies fever(s) and Denies headache(s) Eyes: Eyes: Reports no additional eye complaints ENT: Reports as per HPI, Denies Normal hearing present, Reports nasal congestion, Reports nasal discharge ( Clear per patient) and Reports sore throat Cardiovascular: Cardiovascular: Reports no additional cardiovascular complaints, Denies chest pain and Denies dyspnea Respiratory: Respiratory: Reports no additional respiratory complaints, Reports cough ( nonproductive per patient) and Denies dyspnea Musculoskeletal: Musculoskeletal: Reports no additional musculoskeletal complaints Neurologic: Reports system reviewed and no additional complaints, except as documented Psychiatric: Psychiatric: Reports no additional psychiatric complaints PMFSH Past Medical History Medical History Diabetes mellitus Dyslipidemia Hypertension Sleep apnea Surgical History Surgical History Status post cholecystectomy Status post vasectomy Family History Family History Other Family history of gastrointestinal disorder Hypertension Social History Social History Smoking status: Never smoker Alcohol intake: current Substance use: never Gender identity (if verbalized by the patient): Male Comments At the time of my signature, I reviewed and agree with the nursing past medical, surgical, social, and family history. There is no relevant family history pertinent to the patient complaint. Exam Const: General: cooperative, healthy appearing, no acute distress, well developed, alert, tired appearing and well nourished Nutritional Appearance: well nourished Orientation/consciousness: patient oriented x3 Limitations: no limitations HENMT: Head: normal to inspection Ears: external ears normal and TM abnormal with fluid behind the TM bilateral and diffuse Face/Nose/Sinus: Normal external nose present, Abnormal mucous membranes and turbinates present boggy bilateral and erythematous bilateral, normal facial exam, No erythema and No edema Face and sinus: normal facial exam, no erythema and no edema Mouth: Yes Normal oral and palatal mucosa present Throat: posterior oropharynx abnormal erythema and postnasal drainage Eyes: General: appearance normal, both eyes and all related structures Neck: Neck: normal visual inspection, full ROM and no meningeal signs Lympha
== END 2023-05-29 10:31 | disposition home or self-care (01) ==
PROVIDERS: Emergency Provider Nurse Practitioner Family
DX: J06.9 Acute upper respiratory infection, unspecified (principal); I10 Essential (primary) hypertension; Z20.822 Contact with and (suspected) exposure to COVID-19; E11.9 Type 2 diabetes mellitus without complications; E78.5 Hyperlipidemia, unspecified; Z79.82 Long term (current) use of aspirin
CPT/HCPCS: 87081; 87426; 87804; 87880; 99213; G0463

== ENCOUNTER 2024-03-06 08:00 | Emergency (ER) | payer OTHER, SELFPAY ==
--- NOTE | ~2024-03-06 | XR_ITS ---
Him XR chest 2V Ordering provider: LLUVIA MalhotraP History: 59 years Male with . cough for 1 week . Comparison: September 18, 2022 FINDINGS: MEDIASTINUM: The cardiac silhouette is not enlarged. LUNGS: No infiltrates, effusions or pneumothorax. OTHER: No free air under the diaphragm. Degenerative changes of the spine. IMPRESSION: No acute cardiopulmonary pathology. Reviewed, dictated and finalized at location A. SKI MAKER
[2024-03-06 08:18] VITALS: BP 125/79; PULSE 70; RESP 18; TEMP 36.2; O2SAT 99
--- NOTE | 2024-03-06 08:34 | ED_ITS ---
HPI - General Adult General Chief complaint: Upper Respiratory Infection Stated complaint: sore throat/ cough / headache Source: patient Mode of arrival: ambulatory Limitations: no limitations History of Present Illness HPI narrative: Pt presents for evaluation of sick symptoms. Symptom onset one week ago. He initially had a sore throat. He then developed a cough which is his primary concern today. Cough is productive. He has associated LEACH and loose stool. No fever, chills, nausea, vomiting or diarrhea. His daughter, with whom he recently spent time, tested positive for COVID. He has been taking Coricidin and an OTC cough and cold medication for his symptoms. He does not smoke. Related Data Home Medications ?Medication ?Instructions ?Recorded ?Confirmed ?Last Taken ?Type atorvastatin 20 mg tablet 20 mg PO DAILY 05/01/19 05/29/23 Unknown History glipizide 5 mg tablet, extended 5 mg PO DAILY 05/01/19 05/29/23 Unknown History release 24 hr lisinopril 20 mg tablet 20 mg PO DAILY 05/01/19 05/29/23 Unknown History sitagliptin phosphate 50 1,000 tablet PO BID 05/01/19 05/29/23 Unknown History mg-metformin 1,000 mg tablet (Janumet) Allergies Allergy/AdvReac Type Severity Reaction Status Date / Time amoxicillin Allergy Mild HIVES Verified 03/06/24 08:16 Review of Systems Review of Systems: CONSTITUTIONAL: Denies fever, chills, or sweats. EYES: Denies visual changes, redness, or discharge. ENT:Reports sore throat, nasal congestion and drainage. CARDIOVASCULAR: Denies chest pain, palpitations, or edema. RESPIRATORY: Reports cough and LEACH GASTROINTESTINAL: Denies abdominal pain, nausea, vomiting, or diarrhea. GENITOURINARY: Denies dysuria or hematuria. SKIN: Denies rash or itching. MUSCULOSKELETAL: Denies back pain, joint pain, or myalgia. NEUROLOGIC: Denies headache, numbness, dizziness, or weakness. PSYCHIATRIC: Denies anxiety or depression. [facility] Past Medical History Medical History Sleep apnea Dyslipidemia Hypertension Diabetes mellitus Surgical History Surgical History Status post vasectomy Status post cholecystectomy Family History Family History Other Family history of gastrointestinal disorder Hypertension Social History Social History Smoking status: Never smoker Alcohol intake: current Substance use: never Gender identity (if verbalized by the patient): Male Exam Narrative: GENERAL: Well-appearing, well-nourished, and in no acute distress. HEAD: Normocephalic, atraumatic. EYES: PERRLA and EOMI. ENT: Nares clear, no rhinorrhea or epistaxis. Mucous membranes moist. Oropharynx without tonsillar hypertrophy exudate or other lesions. Bilateral TMs pearly batista nonbulging NECK: Supple. No adenopathy or masses. No carotid bruits or JVD CHEST: Mild wheezing on right side posteriorly HEART: Regular rate and rhythm. No murmur heard. Normal peripheral pulses. ABDOMEN: Soft, nontender, nondistended, normal active bowel sounds. EXTREMITIES: Normal range of motion. No edema. SKIN: Warm, dry, no rash. NEURO: No focal deficits. Alert and oriented x3. PSYCH: Normal mood and affect. Course Course Emergency Course: This is a 59-year-old male who presented for evaluation of cough. Influenza and COVID were negative. Chest x-ray was read by radiologist as negative however his clinical assessment in concerning for pneumonia. He potentially has LLL infiltrate on my review. Through shared decision making with pt opted to proceed with abx therapy. Will dc with cefinir and azithromycin. He can tolerate cephalosporins and states at times in past he has tolerated amoxicillin. Follow up with primary provider. Go to the ER for worsening symptoms. Pt in agreement with plan of care Level of Care: Express Care Visit Vital Signs Vital signs: Vital Signs Temperature 36.2 C L 03/06/24 08:18 Pulse Rate 70 03/06/24 08:18 Respiratory Rate 18 03/06/24 08:18 Blood Pressure 125/79 03/06/24 08:18 Pulse Oximetry 99 03/06/24 08:18 Oxygen Delivery Room Air 03/06/24 08:18 Temperature 36.2 C L 03/06/24 08:18 Pulse Rate 70 03/06/24 08:18 Respiratory Rate 18 03/06/24 08:18 Blood Pressure 125/79 03/06/24 08:18 Pulse Oximetry 99 03/06/24 08:18 Oxygen Delivery Room Air 03/06/24 08:18 Medical Decision Making Vital Signs Vital Signs: Vital Signs Temperature 36.2 C L 03/06/24 08:18 Pulse Rate 70 03/06/24 08:18 Respiratory Rate 18 03/06/24 08:18 Blood Pressure 125/79 03/06/24 08:18 Pulse Oximetry 99 03/06/24 08:18 Oxygen Delivery Room Air 03/06/24 08:18 Temperature 36.2 C L 03/06/24 08:18 Pulse Rate 70 03/06/24 08:18 Respiratory Rate 18 03/06/24 08:18 Blood Pressure 125/79 03/06/24 08:18 Pulse Oximetry 99 03/06/24 08:18 Oxygen Delivery Room Air 03/06/24 08:18 Lab Data Labs: Lab Results 03/06/24 Range/Units 08:47 POC Influenza A Ag Negative (Negative) POC Influenza B Ag Negative (Negative) POC SARS CoV-2 Ag Negative (Negative) Imaging Data Radiologist's impression: XR chest 2V Ordering provider: EARLE Malhotra History: 59 years Male with . cough for 1 week . Comparison: September 18, 2022 FINDINGS: MEDIASTINUM: The cardiac silhouette is not enlarged. LUNGS: No infiltrates, effusions or pneumothorax. OTHER: No free air under the diaphragm. Degenerative changes of the spine. IMPRESSION: No acute cardiopulmonary pathology. Discharge Plan Discharge Clinical Impression: At high risk for pneumonia Patient Disposition: Home, Self-Care Condition: Stable Instructions: Antibiotic Form, Acute Cough (ED) Additional Instructions: Dextromethorphan should help with cough Patient Language: Zambian Prescriptions: New cefdinir 300 mg capsule 300 mg PO Q12H Qty: 20 0RF azithromycin 250 mg tablet See Rx Instructions .ROUTE .COMPLEX Qty: 6 0RF Rx Instructions: For 250 mg dose pack: take 500 mg today (day 1), then 250 mg for 4 days (days 2-5) benzonatate 200 mg capsule 200 mg PO TID PRN (Reason: cough) Qty: 30 0RF No Action atorvastatin 20 mg tablet 20 mg PO DAILY lisinopril 20 mg tablet 20 mg PO DAILY glipizide 5 mg tablet extended release 24hr 5 mg PO DAILY Janumet 50-1,000 mg tablet 1,000 tablet PO BID Follow-up/Referrals: [facility], [Primary Care Provider] - Time of Disposition: 09:07
[2024-03-06 08:49] LABS: EDCOVIDSCREEN Negative (Negative); EDINFLUASCREEN Negative (Negative); EDINFLUBSCREEN Negative (Negative)
== END 2024-03-06 09:15 | disposition home or self-care (01) ==
PROVIDERS: Emergency Provider Nurse Practitioner
DX: J02.9 Acute pharyngitis, unspecified (principal); R05.9 Cough, unspecified; R51.9 Headache, unspecified; I10 Essential (primary) hypertension; E11.9 Type 2 diabetes mellitus without complications; Z20.822 Contact with and (suspected) exposure to COVID-19
CPT/HCPCS: 71046; 87426; 87804; 99213; G0463

== ENCOUNTER 2024-11-19 08:13 | Emergency (ER) | payer OTHER, SELFPAY ==
[2024-11-19 08:21] VITALS: BP 138/78; PULSE 77; RESP 16; TEMP 36.3; O2SAT 98
[2024-11-19 08:33] LABS: EDSTREPNEGPOS1 Negative (Negative)
--- OUTSIDE RECORDS SUMMARY | 2024-11-19 08:33 | XMS_ITS | Clinical Summary ---
Author Organization [facility] Address [facility] [place] [address] Care Team Providers Care Buggy Ladle Tender Name Role Phone Krishan Goldstein MD Unavailable [phone] Esha Reddy MD Primary Care Provider [phone] Allergies No known active allergies Medications SitaGLIPtin-Met FORMIN HCl (JANUMET XR) 50-1000 MG TABLET SR 24 HR Take 1 tablet by mouth 2 (two) times daily. 07/10/2017 Active glipiZIDE 5 MG tablet Take 1 tablet (5 mg total) by mouth every morning before breakfast. 07/10/2017 Active lisinopril 20 MG tablet Take 1 tablet (20 mg total) by mouth every morning. 07/10/2017 Active atorvastatin 20 MG tablet Take 1 tablet (20 mg total) by mouth nightly at bedtime. 07/10/2017 Active aspirin 81 MG tablet Take 1 tablet (81 mg total) by mouth daily. 07/10/2017 Active [place] 3 1000 MG Cap Take 1 capsule by mouth every morning. 07/10/2017 Active ibuprofen 800 MG tablet Take 1 tablet (800 mg total) by mouth as needed for Pain. 07/10/2017 Active Active Problems Problem Noted Date Diagnosed Date Sedentary lifestyle 07/10/2017 Class 1 obesity due to exces s calories without serious comorbidity in adult 07/10/2017 Type 2 diabetes mellitus wit hout complication, without long-term current use of insulin ([facility]) 07/10/2017 Hypertension 07/10/2017 Mixed hyperlipidemia 07/10/2017 On statin therapy 07/10/2017 Antiplatelet or antithrombotic long-term use Sleep apnea Fatigue Family History Relation Status Comments Brother 1 Alive Brother 2 Alive Father (Age 72) Mother Alive Sister 1 Alive Sister 2 Alive Social History Tobacco Use Types Packs/Day Years Used Date Smoking Tobacco: Never Smokeless Tobacco: Never Alcohol Use Standard Drinks/Week Comments Yes 3.3 (1 standard drink = 0.6 oz p ure alcohol) Sex and Gender Information Value Date Recorded Sex Assigned at Not on file Legal Sex Male 4:32 PM CDT Gender Identity Not on file Sexual Orientation Not on file 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 Not on file Not o n file Not on file Last Filed Vital Signs Vital Sign Reading Time Taken Comments Blood Pressure 118/70 07/10/2017 3:55 PM CDT ret aken by Pulse 74 07/10/2017 2:56 PM CDT Temperature - - Respiratory Rate - - Oxygen Saturation 97% 07/10/2017 2:56 PM CDT Inhaled Oxygen Concentration - - Weight 114.8 kg (253 lb) 07/10/2017 2:56 PM CDT Height 188 cm (6' 2) 07/10/2017 2:56 PM CDT Body Mass Index 32.48 07/10/2017 2:56 PM CDT Plan of Treatment Health Maintenance Due Date Last Done Comments Colorectal Cancer Screening Colonoscopy (10 Years) 1966 Kidney Health Evaluation 1966 Hemoglobin A1C 1966 Lipid Panel 1966 Annual Physical 1969 Diabetes: Retinopathy Eye Exam 01/18/1984 Hepatitis C 01/18/1984 DTaP, Tdap and Td Vaccines ( 1 - Tdap) 1985 Hepatitis B Vaccines (1 of 3 - 19+ 3-dose series) 1985 Pneumococcal Vaccine: 50+ Ye ars (1 of 2 - PCV) 1985 Zoster Vaccines (1 of 2) 01/18/2016 COVID-19 Vaccine (1 - 2023-2 5 season) 2024 Meningococcal B Vaccine Aged Out No l onger eligible based on patient's age to complete this topic Meningococcal Vaccine Aged Out No juan yesenia eligible based on patient's age to complete this topic RSV Immunizations Under 20 Months Aged Out No longer eligible based on patient's age to complete this topic Insurance Care Teams Buggy Ladle Tender Relationship Specialty Start Date End Date Esha Reddy MD [address] [place] [id number] PCP - General FAMILY PRACTICE 06/27/17 Krishan Goldstein MD [place] [employer]igh[employer] CARDIOVASCULAR DISEASE 07/07/17
[2024-11-19 08:53] LABS: EDCOVIDSCREEN Negative (Negative); EDINFLUASCREEN Negative (Negative); EDINFLUBSCREEN Negative (Negative)
--- NOTE | 2024-11-19 09:01 | ED_ITS ---
HPI - URI/Sore Throat General Chief Complaint: Upper Respiratory Infection Stated Complaint: Sore throat / Cough / Congestion Time Seen by Provider: 11/19/24 08:50 Source: patient and RN notes reviewed Mode of arrival: ambulatory Limitations: no limitations History of Present Illness HPI Narrative: 59-year-old male presents Express Care complaining of upper respiratory symptoms for approximately 6 days. Patient said symptoms started out as a sore throat he started developing congestion, runny nose, cough and mucopurulent nasal drainage. Since then patient states the symptoms have gotten worse and he is not feeling much better. Patient reports the cough is productive is worse at night. Patient denies any chest pain, shortness of breath, nausea vomiting, diarrhea, fevers, body aches, chills, abdominal pain, or any other symptoms. Patient has been taking DayQuil and NyQuil to help with symptoms with minimal relief. Patient has a history of diabetes. Related Data Home Medications ?Medication ?Instructions ?Recorded ?Confirmed ?Last Taken ?Type atorvastatin 20 mg tablet 20 mg PO DAILY 05/01/1910/29 Unknown History glipizide 5 mg tablet, extended 5 mg PO DAILY 05/01/19 11/19/24 Unknown History release 24 hr lisinopril 20 mg tablet 20 mg PO DAILY 05/01/1910/29 Unknown History sitagliptin phosphate 50 1,000 tablet PO BID 05/01/19 11/19/24 Unknown History mg-metformin 1,000 mg tablet (Janumet) cetirizine 10 mg tablet mg 11/19/24 Unknown History Allergies Allergy/AdvReac Type Severity Reaction Status Date / Time amoxicillin Allergy Mild HIVES Verified 11/19/24 08:25 Review of Systems Review of Systems: CONSTITUTIONAL: Denies fever, chills, body aches, or sweats. EYES: Denies visual changes, redness, or discharge. ENT: Positive for rhinorrhea, congestion, sore throat. Negative for otalgia. CARDIOVASCULAR: Denies chest pain, palpitations, or edema. RESPIRATORY: Positive for cough. Negative for dyspnea or wheezing. GASTROINTESTINAL: Denies abdominal pain, nausea, vomiting, or diarrhea. GENITOURINARY: Denies dysuria or hematuria. SKIN: Denies rash or itching. MUSCULOSKELETAL: Denies back pain, joint pain, or myalgia. NEUROLOGIC: Denies headache, numbness, or weakness. PSYCHIATRIC: Denies anxiety or depression. All other systems reviewed are negative, except as documented in HPI. [facility], [facility] Past Medical History Medical History Sleep apnea Dyslipidemia Hypertension Diabetes mellitus Surgical History Surgical History Status post vasectomy Status post cholecystectomy Family History Family History Other Family history of gastrointestinal disorder Hypertension Social History Social History Smoking status: Never smoker Alcohol intake: current Substance use: never Gender identity (if verbalized by the patient): Male Comments At the time of my signature, I reviewed and agree with the nursing past medical, surgical, social, and family history. There is no relevant family history pertinent to the patient complaint. Exam Narrative: GENERAL: This is a well-nourished, well-developed adult, in no apparent distress. They are non ill-appearing, nontoxic appearing. HEAD: normocephalic, atraumatic. EYES: Sclera clear/white. Vision is grossly intact. Conjunctiva normal bilaterally. Extraocular movements intact. EARS: External ears normal, auditory canals clear and without drainage, TMs without erythema or perforation. Hearing grossly intact. NOSE: External nose normal with no obvious nasal discharge, nasal turbinates erythematous with exudate present., no rhinorrhea. Maxillary sinus tenderness to palpation. THROAT: Mucous membranes moist, posterior pharynx erythematous without exudate. Uvula is midline. Postnasal drip present. NECK: Neck supple, non-tender without lymphadenopathy, masses or thyromegaly. CARDIOVASCULAR: Regular rate and rhythm without murmurs, gallops, or rubs. RESPIRATORY: Clear to auscultation. Breath sounds equal bilaterally. No wheezes, rales, or rhonchi. SKIN: warm, Dry, intact with no suspicious lesions or rash, good texture and turgor. NEURO: awake, alert, and oriented to person, place and time. There were no obvious focal neurologic abnormalities. EXTREMITIES: No joint tenderness, effusion, or edema noted. BACK: Nontender without deformity. Course Course Emergency Course: Portions of this record may have been created with voice recognition software Level of Care: Express Care Visit Vital Signs Vital signs: Vital Signs Temperature 97.4 F L 11/19/24 08:21 Pulse Rate 77 11/19/24 08:21 Respiratory Rate 16 11/19/24 08:21 Blood Pressure 138/78 11/19/24 08:21 Pulse Oximetry 98 11/19/24 08:21 Oxygen Delivery Room Air 11/19/24 08:21 Temperature 97.4 F L 11/19/24 08:21 Pulse Rate 77 11/19/24 08:21 Respiratory Rate 16 11/19/24 08:21 Blood Pressure 138/78 11/19/24 08:21 Pulse Oximetry 98 11/19/24 08:21 Oxygen Delivery Room Air 11/19/24 08:21 MDM - URI/Sore Throat MDM Narrative Medical decision making narrative: Rapid COVID, flu, strep were negative. A throat culture is pending. Given patient's worsening symptoms will go ahead and treat for sinusitis with doxycycline. Also prescribe benzonatate tablets as needed for cough. Discussed physical exam findings. Advised supportive measures and signs/symptoms to go to the ER. Pt is appropriate for outpt treatment and f/u. Differential Diagnosis Differential diagnosis: Likely upper respiratory infection, sinusitis, viral infection, bronchitis and pharyngitis Lab Data Labs: Lab Results 11/19/24 11/19/24 Range/Units 08:29 08:49 POC Influenza A Ag Negative (Negative) POC Influenza B Ag Negative (Negative) POC SARS CoV-2 Ag Negative (Negative) POC Grp A Strep Screen Negative (Negative) Discharge Plan Discharge Clinical Impression: Sinusitis Qualifiers: Sinusitis location: unspecified location Chronicity: acute Recurrence: non- recurrent Qualified Code(s): J01.90 - Acute sinusitis, unspecified Patient Disposition: Home Condition: Stable Instructions: Antibiotic Form, Sinusitis (ED) Additional Instructions: Your COVID, flu, strep were negative today. A throat culture will be sent off and is positive for strep you will be contacted. Take the antibiotics as directed and complete the course even if you start to feel better. Please wear sunscreen if you are going to be outside while taking doxycycline. You may use a Neti pot saline rinse 3 times a day with lukewarm distilled water Continue to take Tylenol or Motrin as needed for pain or fevers. Follow instructions on the bottle. Take benzonatate tablets as directed. Use a humidifier or vaporizer at night. Drink plenty of water. 8-10 glasses per day. Use flonase 2 times per day for 5 days then as needed Take mucinex 2 times per day and be sure to take with 8oz of water. Follow up with Primary provider in 3-5 days Please go to the ER if he develops any difficulty breathing, worsening symptoms, or any other concerns Patient Language: Bel[place]ian Prescriptions: New doxycycline monohydrate 100 mg capsule 100 mg PO BID 7 Days Qty: 14 0RF benzonatate 100 mg capsule 100 mg PO TID PRN (Reason: cough) Qty: 20 0RF No Action cetirizine 10 mg tablet atorvastatin 20 mg tablet 20 mg PO DAILY lisinopril 20 mg tablet 20 mg PO DAILY glipizide 5 mg tablet extended release 24hr 5 mg PO DAILY Janumet 50-1,000 mg tablet 1,000 tablet PO BID Follow-up/Referrals: MADERA, [Primary Care Provider] Time of Disposition: 09:00
== END 2024-11-19 09:02 | disposition home or self-care (01) ==
DX: J01.90 Acute sinusitis, unspecified (principal); Z20.822 Contact with and (suspected) exposure to COVID-19; E11.9 Type 2 diabetes mellitus without complications; Z79.84 Long term (current) use of oral hypoglycemic drugs; I10 Essential (primary) hypertension; E78.5 Hyperlipidemia, unspecified; Z98.52 Vasectomy status
CPT/HCPCS: 87081; 87426; 87804; 87880; 99213; G0463